=== PATIENT | male | born 1985 | race Caucasian/White ===

== ENCOUNTER → 2016-08-23 | Day surgery (SDC) | payer OTHER ==
[~2016-08-23] VITALS: Ht 165.1 cm; Wt 73.0 kg
[~2016-08-23] MED LIST: AMIT50TA PO; AMPICILLIN SOD/SULBACTAM SOD 3 GM in D5W MINI-BAG PLUS 100 ML IV ONE; CHLORHEXIDINE GLUCONATE 0.12 % 15ML UDC (PERIDEX ORAL RINSE) As Ordered ONE; DEPA125C PO; DESFLURANE 240 ML INHALANT As Ordered ONE; GLYCOPYRROLATE INJ 0.2 MG/ML 2 ML VIAL As Ordered ONE; HYDROmorphone HCL 2 MG/ML 1ML VIAL (J1170) As Ordered ONE; LIDOCAINE 2% INJ 100 MG/5 ML SDV (FOR ANES.) As Ordered ONE; LIDOCAINE 2% W/ EPINEPHRINE 1.7 ML DENTAL INJ As Ordered ONE; LR 1,000 ML IV ONE; LR 1,000 ML IV SCH; MEPERIDINE INJ 25 MG/ML VIAL (J2175) IV PRN; METOCLOPRAMIDE INJ 10MG/2ML VIAL (J2765) As Ordered ONE; METOCLOPRAMIDE INJ 10MG/2ML VIAL (J2765) IV PRN; MIDAZOLAM INJ 2 MG/2 ML VIAL (J2250) As Ordered ONE; NEOSTIGMINE 1MG/ML 5 ML SYRINGE (J2710) As Ordered ONE; OMEP40CA2 PO; ONDANSETRON 4MG/2ML VIAL (J2405) As Ordered ONE; ONDANSETRON 4MG/2ML VIAL (J2405) IV PRN; PERCOCET 5MG/325MG TAB PO PRN; PROPOFOL 200 MG/20 ML VIAL As Ordered ONE; ROCURONIUM BROMIDE 50 MG/5 ML VIAL As Ordered ONE; SEVOFLURANE INHAL SOLN 250 ML BTL As Ordered ONE; VITA100037 PO; VITAMIN B 2 PO; dexameTHASONE 4 MG/ML 1ML VIAL (J1100) IV ONE; fentaNYL 100 MCG/2 ML INJECTION (J3010) As Ordered ONE; fentaNYL 100 MCG/2 ML INJECTION (J3010) IV PRN; fentaNYL 250 MCG/5 ML INJECTION (J3010) As Ordered ONE
[2016-08-23 11:25] VITALS: BP 134/71
--- NOTE | 2016-08-23 12:31 | RO ---
DATE OF PROCEDURE: 08/23/2016 SURGEON: Chip Kan DMD, MD [employer] OPERATOR: PREOPERATIVE DIAGNOSIS: Grossly decayed and hopeless teeth numbers 2, 3, 4, 5, 6, 11,12, 14, 15, 20, 23, 24, 25, 26, 28, 29, and 31. POSTOPERATIVE DIAGNOSIS: Grossly decayed and hopeless teeth numbers 2, 3, 4, 5, 6, 11,12, 14, 15, 20, 23, 24, 25, 26, 28, 29, and 31. PROCEDURE PERFORMED: Extraction of the aforementioned teeth. ANESTHESIA: General endotracheal anesthesia via nasal ray. SPECIMEN: None. INDICATIONS FOR SURGERY: Se is a pleasant 30-year-old male who was referred to my office for evaluation for the extraction of the aforementioned teeth. Review of his past medical history reveals that he has a history of uncontrolled seizures, for which he has not had any seizures for the last 4-5 months, per his mother. He also has a high dental anxiety and would like to be completely put to sleep. A discussion with the patient was made regarding the anesthesia options we could perform, like intravenous (IV) sedation in the office versus general anesthesia in an operating room. It was felt that it would be most comfortable for him and the safest medically to have this procedure done in an operating room under general anesthesia. A medical clearance was obtained from his primary care physician and is in the patient's chart. A complete history and physical was performed, as well as an informed consent which was explained to the patient and his mother and was signed by Se and is in the patient's chart. DESCRIPTION OF PROCEDURE: On 08/23/2016, the patient presented to the [facility], where he was met by me and the anesthesiologist. Any last minute questions were addressed. At that point, the informed consent and the history and physical were updated. At this point, Morris was then taken back to the operating room. He was laid supine on the operating room table. Ulnar nerve protectors were placed. Noninvasive cardiac monitors were applied. At that point, the patient underwent general anesthesia and was intubated with a nasal ray, which was then secured to the patient's forehead. At this point, the patient was then prepped and draped in the usual sterile fashion. A time-out procedure was performed to identify the patient, the procedure, and any other precautions; and preoperative antibiotics were given in the form of 3 grams of Unasyn within 30 minutes of the incision. At this point, a moist throat pack was then inserted in the patient's oropharynx, followed by the administration of 12 carpules of 2% lidocaine with 1:100,000 epinephrine, which were given as local infiltrations and nerve blocks. At this point, a full-thickness flap was raised buccally teeth numbers 2, 3, 4, 5, 6, 11,12, 14, 15, 20, 28, 29, and 31. The teeth were very brittle, and the crowns of the teeth were fracturing upon gentle luxation. At this point, a Surgairtome was used to remove buccal bone to expose the facial surfaces of the teeth/roots. A straight elevator was then used to luxate all the teeth, as I mentioned, teeth numbers 2, 3, 4, 5, 6, 11,12, 14, 15, 20, 28, 29, and 31. All the sockets were copiously irrigated and suctioned. No sinus exposure was noted, and the inferior alveolar nerve was not noted. At this point, Gelfoams were placed in each socket, and flaps were closed with 3-0 chromic sutures. Also, routine forceps extraction was performed on teeth numbers 23, 24, 25, and 26. At this point, all the sites were inspected. Hemostasis was easily achieved. The oral cavity was irrigated and suctioned, and the throat pack was removed. The patient was then extubated without any incident and taken back to the postanesthesia care unit for further monitoring. COMPLICATIONS: None. ESTIMATED BLOOD LOSS: About 100 mL. DRAINS: There were no drains placed.
== END | disposition home or self-care (01) ==
LOC: M SDC 06:36
PROVIDERS: ATTEND Dentist
DX: K02.9 Dental caries, unspecified (principal); R56.9 Unspecified convulsions; Z79.899 Other long term (current) drug therapy; J45.909 Unspecified asthma, uncomplicated; Z87.891 Personal history of nicotine dependence
CPT/HCPCS: 88300; D7210; D9223; J1100; J1170; J2250; J2405; J2710; J2765; J3010